=== PATIENT | male | born 1970 | race Two or more races ===

== ENCOUNTER 2017-09-26 19:00 | Emergency (ER) | payer OTHER, SELFPAY ==
[~2017-09-26] VITALS: Ht 165.1 cm; Wt 84.2 kg
[2017-09-26] MEDS ORDERED: KETOROLAC 30 MG/1 ML IM ONE (19:30)
[2017-09-26] MEDS ORDERED: HYDROcodone/APAP 5/325 TABLET PO ONE (19:30)
[2017-09-26] MEDS ORDERED: ONDANSETRON ODT 4 MG PO ONE (19:30)
[2017-09-26 19:40] LABS: BASOPHILS # (AUTO) 0.04 x10^3/uL (0-0.1); BASOPHILS % (AUTO) 1 % (0-1); EOSINOPHILS # (AUTO) 0.23 x10^3/uL (0-0.4); EOSINOPHILS % (AUTO) 4 % (1-7); LYMPHOCYTES # (AUTO) 2.63 x10^3/uL (1-3.4); LYMPHOCYTES % (AUTO) 41 % (22-44); MD NO; MEAN CORPUSCULAR HEMOGLOBIN 28.4 pg (27.5-34.5); MEAN CORPUSCULAR HGB CONC 33.3 g/dL (33.2-36.2); MEAN CORPUSCULAR VOLUME 85.4 fL (81-97); MEAN PLATELET VOLUME 8.5 fL (7.4-10.4); MONOCYTES # (AUTO) 0.47 x10^3/uL (0.2-0.8); MONOCYTES % (AUTO) 7 % (2-9); NEUTROPHILS # (AUTO) 3.06 x10^3/uL (1.8-6.8); NEUTROPHILS % (AUTO) 48 % (42-75); PLATELET COUNT 261 x10^3/uL (130-400); RED BLOOD COUNT 5.13 x10^6/uL (4.38-5.82); RED CELL DISTRIBUTION WIDTH 13.7 % (9.4-14.8)
[2017-09-26 19:50] LABS: MICROSCOPIC INDICATED
[2017-09-26 19:52] LABS: ALANINE AMINOTRANSFERASE 30 U/L (12-78); ALBUMIN 3.7 g/dL (3.4-5.0); ANION GAP 6 mmol/L (5-15); CALCIUM 8.6 mg/dL (8.5-10.1); CHLORIDE 108 mmol/L (98-107); CREATININE 1.09 mg/dL (0.7-1.3)
[2017-09-26 19:54] LABS: ALKALINE PHOSPHATASE 53 U/L (45-117); BILIRUBIN,TOTAL 0.3 mg/dL (0.2-1.0); TOTAL PROTEIN 7.7 g/dL (6.4-8.2)
[2017-09-26 20:03] LABS: CULTURE INDICATED? NO
[2017-09-26] MEDS ORDERED: HYDROcodone/APAP 5/325 TABLET ONE (20:07)
[2017-09-26] MEDS ORDERED: ONDANSETRON ODT 4 MG ONE (20:08)
[2017-09-26] MEDS ORDERED: KETOROLAC 30 MG/1 ML ONE (20:08)
[2017-09-26 20:44] VITALS: BP 143/79
== END 2017-09-26 20:46 | disposition home or self-care (01) ==
LOC: ED 20:00
DX: N20.2 Calculus of kidney with calculus of ureter (principal); K40.90 Unilateral inguinal hernia, without obstruction or gangrene, not specified as recurrent; F17.290 Nicotine dependence, other tobacco product, uncomplicated; Z87.442 Personal history of urinary calculi
CPT/HCPCS: 36415; 74176; 80053; 81001; 85025; 96372; 99285; J1885; Q0162

== ENCOUNTER 2017-09-28 17:57 | Emergency (ER) | payer SELFPAY ==
[~2017-09-28] VITALS: Ht 165.1 cm; Wt 84.5 kg
[2017-09-28 18:55] LABS: BASOPHILS # (AUTO) 0.03 x10^3/uL (0-0.1); BASOPHILS % (AUTO) 1 % (0-1); EOSINOPHILS # (AUTO) 0.18 x10^3/uL (0-0.4); EOSINOPHILS % (AUTO) 3 % (1-7); LYMPHOCYTES # (AUTO) 2.84 x10^3/uL (1-3.4); LYMPHOCYTES % (AUTO) 41 % (22-44); MD NO; MEAN CORPUSCULAR HEMOGLOBIN 28.6 pg (27.5-34.5); MEAN CORPUSCULAR HGB CONC 33.9 g/dL (33.2-36.2); MEAN CORPUSCULAR VOLUME 84.3 fL (81-97); MEAN PLATELET VOLUME 8.6 fL (7.4-10.4); MONOCYTES # (AUTO) 0.55 x10^3/uL (0.2-0.8); MONOCYTES % (AUTO) 8 % (2-9); NEUTROPHILS # (AUTO) 3.34 x10^3/uL (1.8-6.8); NEUTROPHILS % (AUTO) 48 % (42-75); PLATELET COUNT 246 x10^3/uL (130-400); RED CELL DISTRIBUTION WIDTH 13.7 % (9.4-14.8)
[2017-09-28 19:05] LABS: ALANINE AMINOTRANSFERASE 28 U/L (12-78); ALBUMIN 3.4 g/dL (3.4-5.0); ANION GAP 9 mmol/L (5-15); CALCIUM 8.6 mg/dL (8.5-10.1); CHLORIDE 104 mmol/L (98-107); CREATININE 1.25 mg/dL (0.7-1.3)
[2017-09-28 19:07] LABS: ALKALINE PHOSPHATASE 58 U/L (45-117); BILIRUBIN,TOTAL 0.2 mg/dL (0.2-1.0); TOTAL PROTEIN 7.8 g/dL (6.4-8.2)
[2017-09-28 20:15] LABS: MICROSCOPIC AUTO
[2017-09-28 20:16] LABS: CULTURE INDICATED? NO
[2017-09-28 23:14] VITALS: BP 147/75
[2017-09-28] MEDS ORDERED: HYDR-3240 PO (23:17)
[2017-09-28] MEDS ORDERED: ONDA4TAB13 SL (23:17)
[2017-09-28] MEDS ORDERED: TAMS-11 PO (23:17)
== END 2017-09-28 23:19 | disposition home or self-care (01) ==
LOC: ED 23:13
DX: R33.9 Retention of urine, unspecified (principal); R10.2 Pelvic and perineal pain; Z87.442 Personal history of urinary calculi; Z46.59 Encounter for fitting and adjustment of other gastrointestinal appliance and device
CPT/HCPCS: 36415; 51702; 74018; 76770; 80053; 81001; 85025; 99285